=== PATIENT | male | born 1985 | race Caucasian/White ===

== ENCOUNTER 2022-01-11 10:09 | Outpatient (CLI) | payer OTHER, SELFPAY ==
--- NOTE | ~2022-01-11 | US_ITS ---
US breast LT limited 01/11/2022 11:03 Indication: Palpable right breast abnormality Procedure: High-resolution Limited ultrasound of the right breast Comparison: No prior studies for comparison. Findings: There is a normal-appearing intramammary lymph node at the 2:00 position, 3 cm from the nip ple measuring 8 mm maximum dimension. No other masses are identified. Impression: 1: No sonographic evidence for malignancy. Normal benign lymph node corresponds to the palpable findi ng. BI-RADS CATEGORY 2 - BENIGN FINDINGS Reviewed, dictated and finalized at location A. Impression: 1: No sonographic evidence for malignancy. Normal benign lymph node corresponds to the palpable finding. BI-RADS CATEGORY 2 - BENIGN FINDINGS
== END 2022-01-11 10:10 | disposition home or self-care (01) ==
PROVIDERS: PCP Physician Assistant; Visit Provider Physician Assistant
DX: N63.20 Unspecified lump in the left breast, unspecified quadrant (principal)
CPT/HCPCS: 76642